=== PATIENT | male | born 1950 | race Caucasian/White ===

== ENCOUNTER 2017-04-23 07:13 | Inpatient (IN) | payer OTHER ==
[~2017-04-23] VITALS: Ht 175.3 cm; Wt 61.2 kg
--- NOTE | ~2017-04-23 | H ---
[facility] [place] [address] HISTORY AND PHYSICAL Name: CAITLYN MURRY Room #: 411-P ADM IN M.R.#: [id number] Admission: 04/23/17 Attend Phys: Bi Ramirez MD Discharge: Date of : 46 Report #: [id number] THIS REPORT FOR: //name// CC: Minda Ramirez DATE OF SERVICE: 04/23/2017 CHIEF COMPLAINT: Fever, nausea, and vomiting. HISTORY OF PRESENT ILLNESS: The patient is a 67-year-old man with multiple medical problems, who was admitted to the rehab after he fractured his pelvis. The patient had ORIF, and he underwent to the rehab. He states that he was supposed to go home tomorrow. The patient was noted to have fever and shortness of breath, followed by nausea and coffee ground emesis. He came to the hospital. Chest x-ray revealed right lower lobe pneumonia. The patient currently feels very weak. Now, he denies shortness of breath. He is not in any pain. He no longer has nausea or vomiting. PAST MEDICAL HISTORY: 1. History of coronary artery disease, status post coronary artery bypass grafting surgery. 2. History of congestive heart failure, details not provided. 3. Paroxysmal atrial fibrillation. 4. COPD, oxygen dependent. 5. Abdominal aortic aneurysm, 5.4 cm by report from the rehab. 6. Diabetes mellitus type 2. 7. Hypertension. CURRENT MEDICATIONS: Extensive list is reviewed and documented in the patient's chart. FAMILY HISTORY: Reviewed and not pertinent to the patient's current condition. SOCIAL HISTORY: The patient quit smoking cigarettes about a year ago. He does not drink alcohol. REVIEW OF SYSTEMS: As above in HPI section, all others negative. PHYSICAL EXAMINATION: GENERAL: The patient is chronically ill-appearing elderly man, who looks older than his actual age. VITAL SIGNS: His blood pressure is 124/77, heart rate is 82 and regular, [facility] [address] [place] [address] HISTORY AND PHYSICAL Name: CAITLYN MURRY Room #: 411-P [facility] IN ..#: [id number] Admission: 04/23/17 Attend Phys: Bi Ramirez MD Discharge: Date of : 46 Report #: [id number] respiration is 18, and temperature is 99.7, from 102.2 earlier today. HEENT: Pupils are equal. Eye movements are normal. Sclerae are anicteric. NECK: The patient has no JVD. He has no carotid bruits. RESPIRATORY: Chest moves symmetrically with breathing. Respiratory sounds are diminished. The patient has no crackles or wheezes. CARDIOVASCULAR: He has regular rhythm and rate. The patient has no murmurs, gallops, or rubs. GASTROINTESTINAL: Abdomen is soft, nondistended and nontender. Bowel sounds are present. The patient has no hepatomegaly or splenomegaly. MUSCULOSKELETAL: The patient has no joint deformities. The patient has generalized muscle wasting. He has no edema, cyanosis, or clubbing. NEUROLOGIC: The patient is alert and oriented x3. His examination is grossly nonfocal. LABS: Basic metabolic profile is essentially normal, except that BUN is 55. Glucose is 117. Creatinine is normal. Magnesium is 1.6. Liver function tests are normal. BNP is elevated at 1800. Troponin is undetectable. On CBC, white count is 13.7, hemoglobin is 11.2, hematocrit is 33.8, and platelets 196. TSH is slightly up at 6.67. Vitamin B12 is normal. Hemoglobin A1c is pending. Urinalysis is normal. On EKG, the patient has normal sinus rhythm. ASSESSMENT AND PLAN: 1. Healthcare-associated pneumonia, involving right lower lobe. The patient is started on broad spectrum antibiotics. Blood cultures are taken. 2. Nausea and vomiting, reported coffee ground emesis. Hemoglobin is stable. The patient has no active bleeding. GI is consulted. The patient is started on PPI. Eliquis is held for now. 3. Congestive heart failure. Details are not specified. Obtain cardiac echo. The patient has no evidence of decompensation. State Tested Nursing Assistant consultation is appreciated. 4. Paroxysmal atrial fibrillation. Currently in sinus rhythm. Holding Eliquis for now, while GI evaluation is pending. 5. Diabetes mellitus type 2. Check hemoglobin A1c. The patient is on sliding scale insulin as an outpatient, which will be continued. 6. Deep venous thrombosis prophylaxis. Sequential compression devices. 7. Debility and weakness. Recent pelvis fracture, status post open reduction and internal fixation. As noted, the patient was in the rehab, which he completed. Continue physical therapy. <ELECTRONICALLY SIGNED> By: Bi Ramirez MD 04/25/17 1604 1209 1304 Bi Ramirez MD /nt
--- NOTE | ~2017-04-23 | HC ---
[facility] [place] [address] CONSULTATION Name: CAITLYN MURRY Room #: 411-P [facility] IN M.R.#: [id number] Admission: 04/23/17 Attend Phys: Bi Ramirez MD Discharge: 04/29/17 Date of : 46 Report #: [id number] THIS REPORT FOR: //name// CC: Minda Ramirez DATE OF SERVICE: 04/29/2017 HISTORY OF PRESENT ILLNESS: The patient is a 67-year-old white male with a history of O2 and steroid dependent COPD, recent right pelvic fracture approximately 5 weeks or so ago. The patient also has chronic right hip premorbid problems, for which he has been utilizing a walker over the last 4 years. He was admitted with a healthcare-associated pneumonia, chronic obstructive pulmonary disease exacerbation, congestive heart failure, diabetes mellitus type 2, paroxysmal atrial fibrillation. He was seen by Orthopedics and noted to have an old Gm King hip arthroplasty with suspected loosening. He is allowed limited weightbearing. He is not felt to be a surgical candidate at this time. It is thought if his medical problems could further stabilize, he could be considered for surgical intervention at a later date. We are seeing him in rehabilitation medicine consultation. PAST MEDICAL HISTORY: Includes coronary artery disease status post CABG, CHF, paroxysmal atrial fibrillation, COPD, O2 dependent, abdominal aortic aneurysm, and diabetes mellitus type 2. MEDICATIONS: Please see the full medication listing. FAMILY HISTORY: Noncontributory. SOCIAL HISTORY: Lives in a house with 7+7 steps, used a front-wheeled walker for the past 4-5 years. He lives there with his daughter and her family. He was on 2 liters nasal cannula. Notes that he has been following with [facility] and has a powered wheelchair, currently on order with his severe right hip pain and decreased functional mobility. REVIEW OF SYSTEMS: Complains of shortness of breath with limited activity. No current chest pain, no abdominal discomfort. He has chronic right hip pain. Notes he has been on narcotics since 1998. No other focal extremity pain complaints at this time. PHYSICAL EXAMINATION: GENERAL: A 67-year-old white male, in no obvious distress. VITAL SIGNS: Last recorded temperature is 97.3, pulse 58, respirations 20, blood pressure 157/78. NEUROLOGIC: He is alert. He is on nasal prong O2, currently 3 liters. Follows basic commands without difficulty. [facility] [address] [place] [address] CONSULTATION Name: CAITLYN MURRY Room #: 411-P [facility] IN .R.#: [id number] Admission: 04/23/17 Attend Phys: Bi Ramirez MD Discharge: 04/29/17 Date of : 46 Report #: [id number] MUSCULOSKELETAL: Functional range of motion of the left upper extremity without obvious focal weakness. Would grade his strength at 3+ to 4-/5. Right upper extremity was not ranged as there is note of newly diagnosed right upper extremity DVT by report. In the lower extremities, there is no focal calf swelling, functional range of motion. I did not do any aggressive range of motion at all of the lower extremities. Strength is grade 3+ to 4-/5. No focal calf swelling. No distal lower extremity edema. Tone appeared to be intact. He has been mod assist with supine to sit. Gait was 3 feet mod assist with a front-wheeled walker. ASSESSMENT: A 67-year-old male with the following problem list: 1. Steroid myopathy. 2. Recent right pelvic fracture now approximately 5 weeks ago. 3. 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 May warrant surgical intervention at a later date if he can medically stabilize and further clear. 4. History of healthcare-associated pneumonia. 5. Chronic obstructive pulmonary disease exacerbation. 6. Chronic O2 and steroid dependent chronic obstructive pulmonary disease. 7. History of abdominal aortic aneurysm. 8. Diabetes mellitus type 2. 9. Coronary artery disease with prior coronary artery bypass graft. PLAN: Therapies are working with him on functional mobility and ADL deficits, working on gradually advancing his mobility and ADLs and independence. He indicates the plan to return back to [facility] for further inpatient therapies to maximize his functional independence. Case management is involved in assisting with this plan. Thank you for asking us to assist in this patient's care. <ELECTRONICALLY SIGNED> By: Perfecto Fowler MD 04/30/17 1510 1238 0046 Perfecto Fowler MD /[facility]
--- NOTE | ~2017-04-23 | 2DMMODE ---
[facility] [place] [address] 2 D/M-MODE ECHOCARDIOGRAM Name: CAITLYN MURRY Room #: 411-P ADM IN M.R.#: [id number] Admission: 04/23/17 Attend Phys: Bi Ramirez Discharge: Date of : 46 Date of Service: 04/23/17 1456 Report #: [id number] THIS REPORT FOR: //name// APPROVED REPORT Study performed: 04/23/2017 13:35:00 EXAM: Comprehensive 2D, Doppler, and color-flow Echocardiogram Status: routine BSA: 1.75 HR: 63 bpm BP: 112/53 mmHg Rhythm: NSR Other Information Study Quality: Good Indications Congestive Heart Failure Hx: CABG, COPD 2D Dimensions RVDd: 36.13 mm LVEF(%): 53.99 (>50%) IVSd: 10.28 (7-11mm) LVOT Diam: 20.18 (18-24mm) LVDd: 55.05 mm PWd: 9.27 (7-11mm) Ascending Ao: 36.37 (22-36mm) LVDs: 39.51 (25-40mm) Aortic Root: 40.82 mm IVC: 19.00 mm TAPSE: 1.50 (<1.7) Jimenez's LVEF: 53.99 % Volumes Left Atrial Volume (Systole) Single Plane 4CH: 55.09 mL Single Plane 2CH: 61.73 mL LA ESV Index: 37.00 mL/m2 Aortic Valve AoV Peak Jon.: 1.44 m/s AO Peak Gr.: 8.25 mmHg LVOT Max P.04 mmHg LVOT Max V: 1.23 m/s CHI Vmax: 2.73 cm2 Mitral Valve E/A Ratio: 0.[address] [facility] [place] [address] 2 D/M-MODE ECHOCARDIOGRAM Name: CAITLYN MURRY Room #: 411-P ADM IN M.R.#: [id number] Admission: 04/23/17 Attend Phys: Bi Ramirez Discharge: Date of : 46 Date of Service: 04/23/17 1456 Report #: [id number] MV Decel. Time: 218.70 ms MV E Max Jon.: 0.61 m/s MV A Jon.: 0.78 m/s MV PHT: 63.42 ms IVRT: 147.64 ms Pulmonary Valve PV Peak Jon.: 0.93 m/s PV Peak Gr.: 3.46 mmHg Pulmonary Vein P Vein S: 0.58 m/s P Vein A: 0.28 m/s P Vein D: 0.35 m/s P Vein A Dur.: 166.1 msec P Vein S/D Ratio: 1.66 Tricuspid Valve TR Peak Jon.: 3.51 m/s RAP Estimate: 5.00 mmHg TR Peak Gr.: 49.18 mmHg PA Pressure: 54.00 mmHg Left Ventricle The left ventricle is normal size. There is mild hypokinesis in the apical septal wall. There is normal left ventricular wall thickness. The left ventricular systolic function is normal. LVEF is 50-55%. Grade I - abnormal relaxation pattern. Right Ventricle The right ventricle is normal size. The right ventricular systolic function is normal. Atria Left atrium is mildly dilated. Right atrium is mildly dilated. Aortic Valve Aortic valve is calcified. Mild aortic regurgitation. There is no aortic valvular stenosis. Mitral Valve Mild mitral annular calcification. Trace mitral regurgitation. No evidence of mitral valve stenosis. Tricuspid Valve The tricuspid valve is normal in structure. Trace to mild tricuspid regurgitation. Pulmonic Valve [address] [address] 2 D/M-MODE ECHOCARDIOGRAM Name: CAITLYN MURRY Room #: 411-P [facility] IN ..#: [id number] Admission: 04/23/17 Attend Phys: Bi Ramirez Discharge: Date of : 46 Date of Service: 04/23/17 1456 Report #: [id number] Pulmonic valve is not well visualized. There is no pulmonic valvular regurgitation. Great Vessels Aortic root is dilated. The ascending aorta is normal in size. IVC is normal in size and collapses >50% with inspiration. Pericardium There is no pericardial effusion. <Conclusion> The left ventricle is normal size. LVEF is 50-55%. There is mild hypokinesis in the apical septal wall. Left atrium is mildly dilated. Right atrium is mildly dilated. Aortic valve is calcified. Mild aortic regurgitation. Mild mitral annular calcification. Trace mitral regurgitation. The tricuspid valve is normal in structure. Trace to mild tricuspid regurgitation. Pulmonic valve is not well visualized. Aortic root is dilated. The ascending aorta is normal in size. There is no pericardial effusion. <ELECTRONICALLY SIGNED> By: Wagner Figueredo MD 04/23/17 1456 1456 1456 Wagner Figueredo MD /INF
--- NOTE | ~2017-04-23 | HC ---
[facility] [place] [address] CONSULTATION Name: CAITLYN MURRY Room #: 411-P [facility] IN M.R.#: [id number] Admission: 04/23/17 Attend Phys: Bi Ramirez MD Discharge: 04/29/17 Date of : 46 Report #: [id number] THIS REPORT FOR: //name// CC: Minda Ramirez DATE OF SERVICE: 04/25/2017 REASON FOR CONSULTATION: Pelvis fracture. HISTORY OF PRESENT ILLNESS: The patient is a 67-year-old male with a somewhat complicated history regarding his right hip. He reports sustaining a fracture in [place] about 4 years ago, being treated with what appears to be a total hip arthroplasty per the patient's report and drawing. He reports of what sounds like a fracture dislocation that did not require surgical treatment; however, he reports he has had difficulty with the hip and has been walking with a walker and had difficulty weightbearing ever since. He moved to [place] to be with his daughter. He has been evaluated by the [facility] by Orthopedics and reports that they do not want to do surgery on him, he thinks for his medical reasons. He gives a history of using a walker and actually getting around fairly well with a walker for the last 4 years. He reports putting some weight on it until this most recent event. He gives a history of a fall with a new diagnosis of a pelvis fracture. This has been treated nonoperatively and some new bone fragment in his hip. He has not been allowed to put weight on it. Since this event, he apparently was seen in the Emergency Department, diagnosed with a fracture and sent to rehab for that and other reasons. He reports a significant history of pulmonary issues. He does report some pain at rest in the right hip and thigh. He also gives a history of chronic left shoulder pain, stiffness and arthrosis. He reports being evaluated for his left shoulder and treated nonoperatively. REVIEW OF SYSTEMS: MUSCULOSKELETAL: Unable to see HPI. NEUROLOGIC: Denies numbness or tingling in his extremities. PAST MEDICAL HISTORY: Significant for coronary artery disease, post coronary artery bypass surgery, congestive heart failure, paroxysmal atrial fibrillation, COPD, abdominal aortic aneurysm 5.4 cm report from the medical record, diabetes type 2, hypertension. SOCIAL HISTORY: He reports quitting smoking about a year ago, does not drink alcohol. His daughter helps with his care. He is oxygen dependent and ambulates with a walker. MEDICATIONS: The patient's MAR was reviewed, which shows albuterol, [address] [address] CONSULTATION Name: CAITLYN MURRY Room #: [facility] IN M.R.#: [id number] Admission: 04/23/17 Attend Phys: Bi Ramirez MD Discharge: 04/29/17 Date of : 46 Report #: [id number] pantoprazole, metoprolol, lactobacillus, furosemide, amiodarone, oxycodone, vancomycin, Solu-Medrol, ferrous sulfate, bupropion, atorvastatin, insulin, piperacillin, tazobactam, loratadine. PAST SURGICAL HISTORY: Coronary artery bypass graft and right hip surgery. The patient reports surgical procedure to place stents in his left lower extremity, but not his right lower extremity. LABORATORY STUDIES: Done on 04/25/2017 show white blood cell count 8.5, hemoglobin 8.1, hematocrit 24.3, platelet count 134. Chemistry on the same date is essentially normal with an elevated glucose at 250. Nares are positive for MRSA. PHYSICAL EXAMINATION: GENERAL: The patient is awake and alert. He interacts appropriately. He is a well-developed, well-nourished, conversant male. VITAL SIGNS: His most recent vital signs show heart rate is 79, blood pressure 145/90 and he is on oxygen by nasal cannula. EXTREMITIES: Examination of his bilateral upper extremities. He has some dark discoloration of the dorsum of his hands, most likely due to venous insufficiency. He has brisk capillary refill. Sensation is intact to light touch. He is able to make full fist, full extension. He has a full functional wrist, elbow and forearm motion. He has minimal motion of the left shoulder with diffuse tenderness and deformity. Right shoulder forward elevation and abduction to approximately 50 degrees with diffuse mild tenderness. Right lower extremity exam: Sensation is grossly intact. He wiggles his toes and he has some signs of stasis dermatitis in the skin, otherwise is clean, dry and intact. He has no significant knee pain. He is able to grossly move his knee. There is some mild pain with hip range of motion and mild thigh tenderness. Left lower extremity exam: Sensation is intact to light touch throughout. He has brisk capillary refill. He has also some chronic venous stasis changes. He has no pain with range of motion of the left hip, knee, ankle or foot. Laboratory studies will be ordered. IMPRESSION AND PLAN: History of a right pelvis/femur fracture. I am unable to determine exactly what the diagnosis is as well as the procedure that was performed. I will order pelvis and hip x-rays and then we will discuss with one of my [facility] formally [facility] surgery partners. Thank you very much for allowing me to participate in the care of this patient. <ELECTRONICALLY SIGNED> By: Dorothy Garnica MD 05/02/17 1525 1618 0518 Dorothy Garnica MD /nt
--- NOTE | ~2017-04-23 | EKG ---
[place] [address] [facility] [place] [address] ELECTROCARDIOGRAM REPORT Name: CAITLYN MURRY Room #: 411-P ADM IN M.R.#: [id number] Admission: 04/23/17 Attend Phys: iB Ramirez MD Discharge: Date of : 46 Report #: [id number] THIS REPORT FOR: //name// [facility] ED Test Date: 2017-04-23 Test Time: 08:31:35 Pat Name: CAITLYN MURRY Department: Room: 411 Gender: M Yoker: felipe : 1950 Requested By: Baron Jones Order Number: [id number] MD: Vick Harrington Measurements Intervals [place] Rate: 85 P: 35 [place]: 174 QRS: -52 QRSD: 120 T: 96 QT: 417 QTc: 496 Interpretive Statements Sinus rhythm LVH with QRS widening and secondary repolarization abnormality Anterior Q waves, possibly due to LVH No previous ECG available for comparison Electronically Signed On 04-24-2017 8:56:08 REFRACTORY TECHNICIAN by Vick Harrington [email or web address] <ELECTRONICALLY SIGNED> By: Vick Harrington MD, [facility] 04/24/17 0856 0 0 Vick Harrington MD, [facility] /EPI
[2017-04-23 07:15] VITALS: BP 126/76
[2017-04-23] MEDS ORDERED: PREDNISONE 20 M20 MG PO (07:43)
[2017-04-23 07:45] LABS: HEMATOCRIT 33.8 % (42.0-52.0); HEMOGLOBIN 11.2 gm/dL (14.0-18.0); MCH 29.5 pg (26.0-34.0); MCHC 33.2 g/dL (28.0-37.0); MCV 88.7 fL (80.0-100.0); PLATELET COUNT 196 thou/uL (150-400); RBC 3.82 mil/uL (4.50-6.00); RDW 19.4 % (10.5-14.5); WBC 13.7 thou/uL (4.0-11.0)
[2017-04-23] MEDS ORDERED: MIRALAX17 GM PO (07:49)
[2017-04-23] MEDS ORDERED: PROTONIX40 M1 PO (07:50)
[2017-04-23] MEDS ORDERED: OXYCONTIN20 M1 PO (07:50)
[2017-04-23] MEDS ORDERED: LOPRESSOR50 PO (07:51)
[2017-04-23] MEDS ORDERED: MAG-AL PLUS SUS30 ML PO (07:52)
[2017-04-23] MEDS ORDERED: CLARITIN10 MG PO (07:52)
[2017-04-23 07:54] LABS: ANION GAP 11 mmol/L (7-16); BUN 55 mg/dL (7-18); CHLORIDE 104 mmol/L (98-107); CO2 27 mmol/L (21-32); CREATININE 1.2 mg/dL (0.7-1.3); GLUCOSE 117 mg/dL (74-106); POTASSIUM 3.9 mmol/L (3.5-5.1); SODIUM 142 mmol/L (136-145)
[2017-04-23 07:54] LABS: URINE BILIRUBIN NEGATIVE (Negative); URINE BLOOD NEGATIVE (Negative); URINE CLARITY CLEAR; URINE COLOR YELLOW; URINE GLUCOSE-RANDOM* NEGATIVE (Negative); URINE KETONES NEGATIVE (Negative); URINE LEUKOCYTES-REFLEX NEGATIVE (Negative); URINE NITRITE-REFLEX NEGATIVE (Negative); URINE PROTEIN (DIPSTICK) NEGATIVE (Negative); URINE SPECIFIC GRAVITY 1.015 (1.005-1.035); URINE UROBILINOGEN 0.2 E.U./dl (0.2-1.0)
[2017-04-23] MEDS ORDERED: PROBIOTIC1 EAC1 PO (07:54)
[2017-04-23] MEDS ORDERED: MUCINEX600 MG PO (07:54)
[2017-04-23] MEDS ORDERED: GLUTOSE GEL 1515 G1 PO (07:54)
[2017-04-23] MEDS ORDERED: GLUCAGEN1 M2 SUBQ (07:55)
[2017-04-23] MEDS ORDERED: LASIX 20 MG TAB20 MG PO (07:55)
[2017-04-23 08:02] LABS: ALBUMIN 3.4 g/dL (3.4-5.0); MAGNESIUM 1.6 mg/dL (1.8-2.4); SGOT 12 U/L (15-37); SGPT 20 U/L (30-65); TOTAL BILIRUBIN 0.5 mg/dL (<0.1-1.0); TOTAL PROTEIN 6.6 g/dL (6.4-8.2); TROPONIN-I < 0.04 ng/mL (<0.06)
[2017-04-23] MEDS ORDERED: IRON325 PO (08:09)
[2017-04-23] MEDS ORDERED: COLACE100 MG PO (08:10)
[2017-04-23] MEDS ORDERED: LIPITOR10 MG PO (08:11)
[2017-04-23] MEDS ORDERED: BISACODYL SUPP10 MG RECTAL (08:11)
[2017-04-23] MEDS ORDERED: TESSALON PERLE100 MG PO (08:11)
[2017-04-23] MEDS ORDERED: PACERONE 200 M200 M1 PO (08:12)
[2017-04-23] MEDS ORDERED: ELIQUIS5 MG PO (08:12)
[2017-04-23] MEDS ORDERED: ASPIR 8181 MG PO (08:12)
[2017-04-23] MEDS ORDERED: ALBUTEROL2.5 MG/31 INH (08:13)
[2017-04-23] MEDS ORDERED: DUONEB 2.5-0.5 M3 ML INH (08:13)
[2017-04-23] MEDS ORDERED: APAP650 PO (08:14)
[2017-04-23] MEDS ORDERED: SSD CREAM 1% 5050 GM TOP (08:14)
[2017-04-23] MEDS ORDERED: WELLBUTRIN SR100 MG PO (08:14)
[2017-04-23] MEDS ORDERED: NOVOLOG100 UNIT/1 SUBQ (08:15)
[2017-04-23] MEDS ORDERED: SENNA8.6 MG PO (08:15)
[2017-04-23] MEDS ORDERED: MINTOX PLUS TA1 EACH PO (08:16)
[2017-04-23] MEDS ORDERED: ENEMEEZ PLUS MIN5 ML RECTAL (08:17)
[2017-04-23] MEDS ORDERED: DEXTROSE 500.5 GM/ML IV PUSH (08:19)
[2017-04-23] MEDS ORDERED: DEXTROSE 5% IV (08:20)
[2017-04-23 08:48] LABS: ABSOLUTE NEUTROPHILS 12.1 thou/uL (1.4-8.2); METAMYELOCYTES 1 %
[2017-04-23 08:49] LABS: ANISOCYTOSIS 2+; POLYCHROMASIA OCCASIONAL
[2017-04-23 09:25] VITALS: BP 126/76
[2017-04-23 11:27] LABS: TSH 6.656 uIU/mL (0.358-3.740)
[2017-04-23 13:05] VITALS: BP 112/53
[2017-04-23 18:10] LABS: GLYCOHEMOGLOBIN (HGB A1C) 5.2 % (4.8-5.6)
[2017-04-23 20:17] VITALS: BP 94/543
[2017-04-24] VITALS (7 sets, daily range): BP systolic 95–151; BP diastolic 55–83
[2017-04-24] MEDS ORDERED: OXYCODONE HCL 55 MG PO (05:58)
[2017-04-24 06:07] LABS: ABSOLUTE NEUTROPHILS 7.1 thou/uL (1.4-8.2); BASOPHILS 0.1 % (0.0-2.0); HEMATOCRIT 20.8 % (42.0-52.0); LYMPHOCYTES 3.7 % (24.0-44.0); MCHC 33.5 g/dL (28.0-37.0); MCV 89.6 fL (80.0-100.0); MONOCYTES 4.2 % (1.0-8.0); PLATELET COUNT 124 thou/uL (150-400); RBC 2.33 mil/uL (4.50-6.00); RDW 19.1 % (10.5-14.5); WBC 7.7 thou/uL (4.0-11.0)
[2017-04-24 06:29] LABS: ALBUMIN 2.2 g/dL (3.4-5.0); CALCIUM 8.2 mg/dL (8.5-10.1); CREATININE 0.9 mg/dL (0.7-1.3); POTASSIUM 4.3 mmol/L (3.5-5.1); TOTAL BILIRUBIN 0.5 mg/dL (<0.1-1.0); TOTAL PROTEIN 4.7 g/dL (6.4-8.2)
[2017-04-24 07:49] LABS: HEMATOCRIT 20.9 % (42.0-52.0); HEMOGLOBIN 6.9 gm/dL (14.0-18.0)
[2017-04-24 23:14] LABS: HEMATOCRIT 27.5 % (42.0-52.0)
[2017-04-24 23:20] LABS: HEMOGLOBIN 9.1 gm/dL (14.0-18.0)
[2017-04-24 23:23] LABS: CALCIUM 8.4 mg/dL (8.5-10.1); POTASSIUM 3.8 mmol/L (3.5-5.1)
[2017-04-25 04:12] VITALS: BP 139/74
[2017-04-25 06:15] LABS: HEMATOCRIT 24.3 % (42.0-52.0); HEMOGLOBIN 8.1 gm/dL (14.0-18.0); MCH 30.1 pg (26.0-34.0); MCHC 33.3 g/dL (28.0-37.0); MCV 90.2 fL (80.0-100.0); PLATELET COUNT 134 thou/uL (150-400); RBC 2.69 mil/uL (4.50-6.00); RDW 18.9 % (10.5-14.5); WBC 8.5 thou/uL (4.0-11.0)
[2017-04-25 06:30] LABS: CALCIUM 8.4 mg/dL (8.5-10.1); CREATININE 0.9 mg/dL (0.7-1.3)
[2017-04-25 07:47] VITALS: BP 145/79
[2017-04-25 08:14] LABS: ANISOCYTOSIS 2+; POLYCHROMASIA SLIGHT
[2017-04-25 16:37] VITALS: BP 138/67
[2017-04-25 20:00] VITALS: BP 142/64
[2017-04-26 04:00] VITALS: BP 156/76
[2017-04-26 04:55] LABS: ABSOLUTE NEUTROPHILS 7.5 thou/uL (1.4-8.2); HEMATOCRIT 24.2 % (42.0-52.0); HEMOGLOBIN 8.1 gm/dL (14.0-18.0); LYMPHOCYTES 1.8 % (24.0-44.0); MCH 30.2 pg (26.0-34.0); MCHC 33.6 g/dL (28.0-37.0); MCV 89.7 fL (80.0-100.0); MONOCYTES 2.8 % (1.0-8.0); PLATELET COUNT 128 thou/uL (150-400); POLYS 95.4 % (36.0-66.0); RDW 18.4 % (10.5-14.5); WBC 7.8 thou/uL (4.0-11.0)
[2017-04-26 04:59] LABS: CREATININE 1.1 mg/dL (0.7-1.3); POTASSIUM 3.8 mmol/L (3.5-5.1)
[2017-04-26 07:31] VITALS: BP 155/74
[2017-04-26 15:45] VITALS: BP 135/67
[2017-04-26 20:00] VITALS: BP 101/73
[2017-04-27 04:00] VITALS: BP 167/77
[2017-04-27 07:00] LABS: HEMATOCRIT 26.3 % (42.0-52.0); HEMOGLOBIN 8.8 gm/dL (14.0-18.0); MCHC 33.4 g/dL (28.0-37.0); RBC 2.92 mil/uL (4.50-6.00); RDW 18.1 % (10.5-14.5); WBC 6.6 thou/uL (4.0-11.0)
[2017-04-27 09:50] VITALS: BP 154/72
[2017-04-27 16:59] VITALS: BP 150/79
[2017-04-27 20:16] VITALS: BP 131/63
[2017-04-28 04:00] VITALS: BP 131/79
[2017-04-28 04:47] LABS: HEMATOCRIT 26.9 % (42.0-52.0); HEMOGLOBIN 8.9 gm/dL (14.0-18.0); MCH 29.5 pg (26.0-34.0); MCHC 33.1 g/dL (28.0-37.0); MCV 89.2 fL (80.0-100.0); PLATELET COUNT 134 thou/uL (150-400); RBC 3.02 mil/uL (4.50-6.00); RDW 18.3 % (10.5-14.5); WBC 8.4 thou/uL (4.0-11.0)
[2017-04-28 05:00] LABS: CALCIUM 7.9 mg/dL (8.5-10.1); POTASSIUM 3.8 mmol/L (3.5-5.1)
[2017-04-28 05:23] LABS: ABSOLUTE NEUTROPHILS 7.9 thou/uL (1.4-8.2); ANISOCYTOSIS 2+; METAMYELOCYTES 1 %; MYELOCYTES 1 %
[2017-04-28 07:10] VITALS: BP 163/82
[2017-04-28 15:50] VITALS: BP 152/77
[2017-04-28 20:38] VITALS: BP 156/87
[2017-04-29 05:13] VITALS: BP 164/80
[2017-04-29 05:17] LABS: CALCIUM 8.1 mg/dL (8.5-10.1); CREATININE 1.1 mg/dL (0.7-1.3); HEMATOCRIT 26.5 % (42.0-52.0); HEMOGLOBIN 8.9 gm/dL (14.0-18.0); MCHC 33.6 g/dL (28.0-37.0); MCV 89.3 fL (80.0-100.0); PLATELET COUNT 135 thou/uL (150-400); POTASSIUM 3.7 mmol/L (3.5-5.1); RBC 2.96 mil/uL (4.50-6.00); RDW 18.2 % (10.5-14.5); WBC 9.6 thou/uL (4.0-11.0)
[2017-04-29 08:01] VITALS: BP 157/78
[2017-04-29 08:22] LABS: ABSOLUTE NEUTROPHILS 9.1 thou/uL (1.4-8.2)
[2017-04-29 08:25] LABS: ANISOCYTOSIS 1+; OVALOCYTES FEW; POIKILOCYTOSIS SLIGHT
[2017-04-29 08:26] LABS: TEARDROPS OCCASIONAL
[2017-04-29] MEDS ORDERED: AUGMENTIN 875-1 EACH PO (13:17)
[2017-04-29 15:45] VITALS: BP 150/80
== END 2017-04-29 19:40 | DRG 177 ==
LOC: ER 07:13 → 4N 08:38 → EROBS 08:38 → 4N 12:21
PROVIDERS: Emergency Medicine; Internal Medicine; Internal Medicine Endocrinology, Diabetes & Metabolism; Internal Medicine Gastroenterology; Nurse Practitioner Acute Care
PROC: 30233N1 Transfusion of Nonautologous Red Blood Cells into Peripheral Vein, Percutaneous Approach (ICD-10-PCS; principal; 2017-04-24)
DX: J69.0 Pneumonitis due to inhalation of food and vomit (principal); J96.21 Acute and chronic respiratory failure with hypoxia; K92.2 Gastrointestinal hemorrhage, unspecified; J44.1 Chronic obstructive pulmonary disease with (acute) exacerbation; G72.0 Drug-induced myopathy; J44.0 Chronic obstructive pulmonary disease with (acute) lower respiratory infection; I13.0 Hypertensive heart and chronic kidney disease with heart failure and stage 1 through stage 4 chronic kidney disease, or unspecified chronic kidney disease; E44.0 Moderate protein-calorie malnutrition; D62 Acute posthemorrhagic anemia; Z68.1 Body mass index [BMI] 19.9 or less, adult; J15.6 Pneumonia due to other Gram-negative bacteria; I25.10 Atherosclerotic heart disease of native coronary artery without angina pectoris; I50.9 Heart failure, unspecified; I48.0 Paroxysmal atrial fibrillation; T38.0X5A Adverse effect of glucocorticoids and synthetic analogues, initial encounter; I71.4 Abdominal aortic aneurysm, without rupture; K21.9 Gastro-esophageal reflux disease without esophagitis; E11.51 Type 2 diabetes mellitus with diabetic peripheral angiopathy without gangrene; N18.9 Chronic kidney disease, unspecified; E11.22 Type 2 diabetes mellitus with diabetic chronic kidney disease; E78.00 Pure hypercholesterolemia, unspecified; E78.5 Hyperlipidemia, unspecified; G89.29 Other chronic pain; Y95 Nosocomial condition; Z95.1 Presence of aortocoronary bypass graft; Z79.899 Other long term (current) drug therapy; Z87.891 Personal history of nicotine dependence; Z87.81 Personal history of (healed) traumatic fracture; Y92.89 Other specified places as the place of occurrence of the external cause; Z88.8 Allergy status to other drugs, medicaments and biological substances; Z88.6 Allergy status to analgesic agent; Z91.030 Bee allergy status; Z91.010 Allergy to peanuts; Z91.013 Allergy to seafood; Z87.11 Personal history of peptic ulcer disease; Z90.49 Acquired absence of other specified parts of digestive tract; Z79.01 Long term (current) use of anticoagulants
CPT/HCPCS: 10790

== ENCOUNTER 2017-05-09 05:19 | Inpatient (IN) | payer OTHER ==
[~2017-05-09] VITALS: Ht 175.3 cm; Wt 57.6 kg
[2017-05-09] VITALS (26 sets, daily range): BP systolic 53–170; BP diastolic 20–88
--- NOTE | ~2017-05-09 | P ---
[facility] [place] [address] PROCEDURE REPORT Name: CAITLYN MURRY Room #: 243-P [facility] IN M.R.#: [id number] Admission: 05/09/17 Attend Phys: Milan Terry MD Discharge: 05/09/17 Date of : 46 Report #: [id number] THIS REPORT FOR: //name// CC: FAM unknown Milan Terry DATE OF SERVICE: 05/09/2017 PROCEDURE: Emergent intubation. INDICATION: Respiratory distress and apparent sepsis and pneumonia. PROCEDURE NOTATION: Called urgently. The patient at bedside for stat consultation, patient transferred to the ICU, he is in respiratory distress. The patient had indication for emergent intubation. The patient was placed supine posturing given 20 mg of etomidate which provide adequate sedation. The patient was edentulous with a Balbina 4 laryngoscope with direct laryngoscopy a grade 1 view of the vocal cords were visualized. A 7.5 endotracheal tube was advanced to 23 cm at the gumline. Positive easy cap color change and bilateral breath sounds are noted post-procedure. Endotracheal tube was secured in position, was noted to be in the distal trachea. I x-ray post-procedure. Thick yellow secretions to casas secretions were aspirated post-procedure. No hypoxemia during procedure. The patient connected to mechanical ventilatory at the end of procedure. <ELECTRONICALLY SIGNED> By: Nathan Nina MD 05/15/17 1233 1335 1854 Nathan Nina MD /marilou
--- NOTE | ~2017-05-09 | P ---
[facility] [place] [address] PROCEDURE REPORT Name: CAITLYN MURRY Room #: 243-P [facility] IN M.R.#: [id number] Admission: 05/09/17 Attend Phys: Milan Terry MD Discharge: 05/09/17 Date of : 46 Report #: [id number] THIS REPORT FOR: //name// CC: FAM unknown Milan Terry DATE OF SERVICE: 05/09/2017 This is a delayed dictation. PROCEDURE: Right radial arterial catheter insertion. INDICATION: Severe sepsis, need for continuous blood pressure monitoring and frequent arterial blood gases. PROCEDURE NOTATION: Right radial arterial site was chosen, in the location patient had poor pulses, and hypotension, on multiple pressors. It was positioned appropriately, cleansed with 2% chlorhexidine gluconate. Sterile field was created using sterile technique and 20 gauge Arrow introducer kit, the right radial artery was cannulated on the third attempt, good pulsatile waveform noted on the monitor. The catheter flushed and aspirated easily, sutured in place with 3-0 silk and then dressed with clear OpSite. <ELECTRONICALLY SIGNED> By: Nathan Nina MD 05/23/17 1122 1014 2313 Nathan Nina MD /nt
--- NOTE | ~2017-05-09 | HC ---
[facility] [place] [address] CONSULTATION Name: CAITLYN MURRY Room #: [facility] IN M.R.#: [id number] Admission: 05/09/17 Attend Phys: Milan Terry MD Discharge: 05/09/17 Date of : 46 Report #: [id number] THIS REPORT FOR: //name// CC: FAM unknown Milan Terry MD DATE OF SERVICE: 05/09/2017 PULMONARY CRITICAL CARE CONSULTATION REFERRING PROVIDER: Milan Terry MD REASON FOR CONSULTATION: Respiratory failure, pneumonia and sepsis. HISTORY OF PRESENT ILLNESS: I was asked emergently to see the patient. Discussed case with Dr. Baron Naqvi and Dr. Terry as well as nursing and respiratory therapy assist with transfer the patient to the ICU and additional management. The patient was already intubated by myself once arrived in the ICU. The patient apparently was here about 2 weeks ago, I had seen him at that time for pneumonia, felt to be associated with aspiration and had had some ground coffee appearing emesis. The patient was placed on proton pump inhibitor. No endoscopies were performed. The patient had been returned back to rehab where he had been rehabbing from pelvic fractures, represented today to the Emergency Department early this morning in respiratory distress. He had also had a fall with a large hematoma over his left lower leg. Upon my arrival to the bedside in the CCU, patient is in obvious respiratory distress. They vocalized to me he wanted to be intubated and have aggressive resuscitative measures. Findings most consistent with pneumonia, he is currently in the ICU, awaiting additional workup. ALLERGIES: None known. PAST MEDICAL HISTORY: 1. Severe debilitation. Currently resides I believe in senior care. 2. COPD. 3. Atrial fibrillation. 4. History of peptic ulcer disease. 5. Severe peripheral vascular disease. 6. Hypertension. 7. Gastroesophageal reflux disease. 8. History of congestive heart failure. 9. Degenerative joint disease. 10. Recent pelvic fractures. 11. Chronic renal insufficiency. 12. Steroid dependency for COPD. [facility] [address] [place] [address] CONSULTATION Name: CAITLYN MURRY Room #: 243-P [facility] IN M.R.#: [id number] Admission: 05/09/17 Attend Phys: Milan Terry MD Discharge: 05/09/17 Date of : 46 Report #: [id number] 13. Hyperlipidemia. 14. History of coronary artery disease with coronary artery bypass grafting. 15. History of abdominal aortic aneurysm. SOCIAL HISTORY: The patient quit smoking about 1 year ago. FAMILY HISTORY: Unobtainable. REVIEW OF SYSTEMS: Unobtainable due to his current neurologic status. PHYSICAL EXAMINATION: VITAL SIGNS: Temperature 34.6, pulse 100, respiratory rate 30s, blood pressure 135/88. GENERAL: This is a very debilitated elderly male in obvious respiratory distress. ENT: Reveals pupils 3 mm reactive to 2, very clear oropharynx, edentulous, Mallampati 1. NECK: Supple. Extensive ecchymosis around sites of EJ attempts in the Emergency Department. CHEST: Reveals a left upper extremity, shoulder intraosseous access with extensive edema and some ecchymosis with no chest wall deformities, somewhat barrel-shaped chest. LUNGS: Coarse throughout. Respirations were labored and tachypneic. CARDIOVASCULAR: Heart was regular. No murmurs could be appreciated. ABDOMEN: Diffusely tender, particularly to percussion, somewhat tympanitic. EXTREMITIES: Diminished pulses, livedo reticularis noted over the lower extremities. A large hematoma over the left lower extremity with some chronic stasis changes also appreciated. NEUROLOGIC: The patient was arousable and could speak make sense, followed commands, moving all extremities. Difficult to assess further. LABORATORY DATA: White blood cell count 30,000; hemoglobin 8.8, hematocrit 27, platelet count 373. Sodium 139, potassium 5.3, chloride 100, bicarbonate 29, BUN 46, creatinine 1.2, glucose 259. Arterial blood gas initially in the Emergency Department on nonrebreather mask revealed pH 7.39, pCO2 of 49, pO2 of 199, bicarbonate 29. Lactate was 3.2. INR is 1.1. Urinalysis without any pyuria. Chest x-ray post-intubation revealed PICC line in good position. Endotracheal tube in good position. A right lower lobe infiltrate suggested. IMPRESSION: 1. Pneumonia. 2. Acute hypoxemic respiratory failure, likely due to the above and/or sepsis. 3. Severe sepsis as evidenced by leukocytosis, tachycardia, tachypnea, hypoxemia, and multiorgan failures. 4. Abdominal discomfort of unclear etiology, given history of peptic ulcer disease and recent finding suggestive of gastrointestinal bleed would be [address] [address] CONSULTATION Name: CAITLYN MURRY Room #: 243-P [facility] IN M.R.#: [id number] Admission: 05/09/17 Attend Phys: Milan Terry MD Discharge: 05/09/17 Date of : 46 Report #: [id number] concerned about an intra-abdominal process in addition to his pneumonia. 5. General debilitation. 6. Recent pelvic fracture. 7. Anemia. 8. History of coronary artery disease. SUGGESTIONS: 1. Plan as outlined already performed. 2. Plan for CT chest, abdomen and pelvis to further evaluate. 3. Antibiotics per Infectious Disease service. 4. Await cultures. 5. Continue bronchodilators, ventilatory support. Currently on low tidal volume high respiratory rate mechanical ventilatory support, followup arterial blood gas, Surgical consultation regarding abdominal discomfort and lower extremity hematoma. 6. We will continue to follow. Total critical care time not including procedures was 50 minutes to this point throughout the morning. <ELECTRONICALLY SIGNED> By: Nathan Nina MD 05/15/17 1234 1343 1938 Nathan Nina MD /nt
--- NOTE | ~2017-05-09 | EKG ---
[place] [address] [facility] [place] [address] ELECTROCARDIOGRAM REPORT Name: CAITLYN MURRY Room #: 170-6 ADM IN M.R.#: [id number] Admission: 05/09/17 Attend Phys: Kalyan Jaimes MD Discharge: Date of : 46 Report #: [id number] THIS REPORT FOR: //name// [facility] ED Test Date: 2017-05-09 Test Time: 05:58:26 Pat Name: CAITLYN MURRY Department: Room: 170 Gender: M Dialysis Patient Care Technician: Anastacio VALENCIA : 1950 Requested By: Fahad Vyas Order Number: [id number] MD: Vick Harrington Measurements Intervals [place] Rate: 82 P: 50 MD: 161 QRS: -44 QRSD: 111 T: 102 QT: 428 QTc: 500 Interpretive Statements Sinus rhythm Left atrial enlargement Left anterior fascicular block LVH with secondary repolarization abnormality Anterior infarct, old Compared to ECG 04/23/2017 08:31:35 No significant change was found Electronically Signed On 05-09-2017 7:47:02 [employer] by Vick Harrington [email or web address] <ELECTRONICALLY SIGNED> By: Vick Harrington MD, [facility] 05/09/17 0747 0558 0558 Vick Harrington MD, [facility] /EPI
--- NOTE | ~2017-05-09 | HC ---
[facility] [place] [address] CONSULTATION Name: CAITLYN MURRY Room #: 243-P [facility] IN M.R.#: [id number] Admission: 05/09/17 Attend Phys: Milan Terry MD Discharge: 05/09/17 Date of : 46 Report #: [id number] THIS REPORT FOR: //name// CC: FAM unknown Milan Terry DATE OF SERVICE: 05/09/2017 INFECTIOUS DISEASES CONSULTATION REASON FOR CONSULTATION: I was asked to evaluate concerning severe sepsis and respiratory failure with aspiration suspected. HISTORY OF PRESENT ILLNESS: A 67-year-old, underlying history of advanced COPD, hypertension, diabetes, who presents with acute onset of shortness of breath along with a large hematoma to the left pretibial leg. Denies any cough or sputum production. No fever, chills or sweats. He is typically on 3 liters of oxygen per nasal cannula and on oral prednisone. He takes Eliquis for his atrial fibrillation. Several days ago while riding in his wheelchair, hit the left pretibial skin suffering a hematoma. No drainage. Pain is controlled. After presentation to the Emergency Room, he was taken to the intensive care unit with respiratory compromise, now on BiPAP. The patient was alert and cooperative. He complained of abdominal pain and discomfort. No report of diarrhea. No dysuria. He was previously treated for pneumonia with Augmentin. He finished his course of treatment. He was just hospitalized here the last week of April. PAST MEDICAL HISTORY: Hypertension, diabetes, COPD, steroid and oxygen dependent, depression, hyperlipidemia, atrial fibrillation, pneumonia, right hip fracture, MRSA colonization. ALLERGIES: TRAMADOL, PROPOXYPHENE, BEESTINGS, FISH-CONTAINING PRODUCTS, PEANUTS. MEDICATIONS: As noted on his MAR, currently 20 mg b.i.d. of prednisone. Other medicines as noted on his MAY. Was on Augmentin leading up to today's presentation. FAMILY HISTORY: Noncontributory. SOCIAL HISTORY: Nonsmoker, no significant alcohol intake. REVIEW OF SYSTEMS: The patient was unable to give a full detail. No reported chest pain or hemoptysis. No vomiting or diarrhea. PHYSICAL EXAMINATION: [facility] [address] [place] [address] CONSULTATION Name: CAITLYN MURRY Room #: 243-P [facility] IN M.R.#: [id number] Admission: 05/09/17 Attend Phys: Milan Terry MD Discharge: 05/09/17 Date of : 46 Report #: [id number] GENERAL: He was hypothermic. He was mottled throughout. He was on BiPAP. Had clear sputum. NECK: Supple. LUNGS: Coarse bilaterally. HEART: Regular, without appreciable murmur. ABDOMEN: Distended, tender mostly on the left side. No hepatosplenomegaly or mass appreciated. External genitalia unremarkable. RECTAL: Not performed. EXTREMITIES: Large hematoma to the left pretibial skin. He had thin skin from his chronic steroid use. LABORATORY STUDIES: Sodium 139, potassium 5.3, bicarbonate 28, creatinine 1.2. Liver function test normal. Hemoglobin 8.8, platelet count 273,000, white count 29.6, 85% segs, 2% bands, 5% metamyelocytes, 2% myelocytes. BNP 9000. Troponin 0.04. INR 1.1. Procalcitonin 0.13. Blood cultures are pending. Chest x-ray, right mid lung pulmonary infiltrate. IMPRESSION: A 67-year-old with advanced chronic obstructive pulmonary disease, recently hospitalized approximately a week ago with chronic obstructive pulmonary disease exacerbation and aspiration pneumonitis following a gastrointestinal bleed, on anticoagulation for atrial fibrillation. He has had a previous pelvic fracture. Now returns with further respiratory compromise, suspect pneumonia, healthcare associated along with a large left lower extremity soft tissue hematoma. RECOMMENDATION: The patient will require intubation and mechanical ventilation for full support. Obtain cultures of blood and sputum as well as place indwelling Montes catheter and check urinalysis and urine culture. His abdomen appears tender, question whether he has had a retroperitoneal bleed, but this would be less likely considering his hemoglobin is stable from his most recent hospital stay. We will have him embark on empiric antibiotic therapy. It is noted that his methicillin-resistant Staphylococcus aureus screen is positive. I discussed in detail with pulmonary medicine at the bedside. <ELECTRONICALLY SIGNED> By: Baron Naqvi MD 05/30/17 2156 1121 1827 Baron Naqvi MD /nt
--- NOTE | ~2017-05-09 | HC ---
[place] [address] CONSULTATION Name: CAITLYN MURRY Room #: [facility] IN M.R.#: [id number] Admission: 05/09/17 Attend Phys: Milan Terry MD Discharge: 05/09/17 Date of : 46 Report #: [id number] THIS REPORT FOR: //name// CC: FAM unknown iMlan Terry DATE OF SERVICE: 05/09/2017 CHIEF COMPLAINT: Hematoma, left lower extremity. HISTORY OF PRESENT ILLNESS: This is a 67-year-old male patient, I have been asked to see with regard to a left lower leg hematoma. He has a history of diabetes, hypertension, atrial fibrillation. He is intubated on a respirator, sedated in the Intensive Care Unit. He is not able to provide any information about himself. PAST MEDICAL HISTORY: Positive for COPD, history of GI bleeding, left lower extremity hematoma, and sepsis. MEDICATIONS: Include MiraLax, Protonix, Lopressor, Claritin, probiotic, Mucinex, glucagon, Lasix, iron, Colace, Lipitor, aspirin, Eliquis, Pacerone, Wellbutrin, Silvadene cream, oxycodone, fentanyl patch, prednisone. PAST MEDICAL HISTORY: Positive hypertension, diabetes, COPD, hyperlipidemia, respiratory failure, atrial fibrillation. FAMILY HISTORY: Noncontributory. SOCIAL HISTORY: Negative for alcohol or tobacco use per his records. REVIEW OF SYSTEMS: A 14-point review of systems is unobtainable due to the patient's level of consciousness as he is unresponsive and orally intubated. PHYSICAL EXAMINATION: VITAL SIGNS: Pulse rate 70, respiratory rate 33, blood pressure 78/51, temperature 98.2. GENERAL: This is a severely debilitated, chronically ill-appearing male patient who is unresponsive on a respirator. HEENT: Head appears normocephalic. Nose is clear. Throat shows that he is orally intubated with endotracheal tube in place. NECK: Supple. LUNGS: Diminished. HEART: Regular rhythm. ABDOMEN: Slightly distended, nontender. EXTREMITIES: Lower extremities demonstrate that the skin is cold to touch. He is a little bit dusky and mottled. He has a large hematoma to the left [address] [place] [address] CONSULTATION Name: CAITLYN MURRY Room #: [facility] IN ..#: [id number] Admission: 05/09/17 Attend Phys: Milan Terry MD Discharge: 05/09/17 Date of : 46 Report #: [id number] pretibial region. It does not appear to be infected. NEUROLOGIC: The patient is flaccid and not responsive. LABORATORY DATA: Includes sodium 139, potassium 5.3, chloride 100, CO2 of 29, BUN 46, creatinine 1.2, glucose 259, total protein 5.7, albumin 3.0. A proBNP is 9330. INR is 1.1. White blood cell count 27.1, hemoglobin 7.5, hematocrit of 23.6. CLINICAL IMPRESSION: 1. Hematoma to the left lower extremity, presumably traumatic in origin. 2. Respiratory failure and sepsis. 3. Mechanical ventilation. RECOMMENDATIONS: At this point in time, the patient is in Intensive Care Unit. He will need to be turned and repositioned as would be appropriate for his condition. We have not turned and rolled him to look at his back or buttocks due to his apparent hemodynamic instability. We will recommend leaving most of the skin open to air. This would require debridement at some point in time, but he would need to be medically much more stable before considering such. I appreciate being asked to see him in consultation. <ELECTRONICALLY SIGNED> By: Oscar Crews MD 05/10/17 0948 2109 0012 Oscar Crews MD /nt
[~2017-05-09 05:19] MED LIST: ALBUTEROL2.5 MG/31 INH; APAP650 PO; ASPIR 8181 MG PO; AUGMENTIN 875-1 EACH PO; BISACODYL SUPP10 MG RECTAL; CLARITIN10 MG PO; COLACE100 MG PO; DEXTROSE 5% IV; DEXTROSE 500.5 GM/ML IV PUSH; DUONEB 2.5-0.5 M3 ML INH; ELIQUIS5 MG PO; ENEMEEZ PLUS MIN5 ML RECTAL; GLUCAGEN1 M2 SUBQ; GLUTOSE GEL 1515 G1 PO; IRON325 PO; LASIX 20 MG TAB20 MG PO; LIPITOR10 MG PO; LOPRESSOR50 PO; MAG-AL PLUS SUS30 ML PO; MINTOX PLUS TA1 EACH PO; MIRALAX17 GM PO; MUCINEX600 MG PO; NOVOLOG100 UNIT/1 SUBQ; OXYCODONE HCL 55 MG PO; OXYCONTIN20 M1 PO; PACERONE 200 M200 M1 PO; PREDNISONE 20 M20 MG PO; PROBIOTIC1 EAC1 PO; PROTONIX40 M1 PO; SENNA8.6 MG PO; SSD CREAM 1% 5050 GM TOP; TESSALON PERLE100 MG PO; WELLBUTRIN SR100 MG PO
[2017-05-09] MEDS ORDERED: DUONEB 2.5-0.5 M3 ML INH (05:33)
[2017-05-09] MEDS ORDERED: DURAGESIC25 MCG/HR TRANSDERM (05:35)
[2017-05-09] MEDS ORDERED: PREDNISONE 10 M10 MG PO (05:36)
[2017-05-09] MEDS ORDERED: SENNA PLUS TAB1 EACH PO (05:39)
[2017-05-09] MEDS ORDERED: MILK OF MA2400 MG/10 PO (05:40)
[2017-05-09 05:43] LABS: BE(vivo) 3.2 mmol/L (-2 to +3); HCO3 28.7 mmol/L (22.0-26.0); PCO2 49.1 mmHg (35.0-45.0); PO2 198.7 mmHg (80.0-100.0); pH 7.385 (7.360-7.450); sO2 99.3 % (92.0-98.0)
[2017-05-09] MEDS ORDERED: DEXTROSE 5% (05:43)
[2017-05-09 06:00] LABS: HEMATOCRIT 27.2 % (42.0-52.0); HEMOGLOBIN 8.8 gm/dL (14.0-18.0); MCH 29.7 pg (26.0-34.0); MCHC 32.4 g/dL (28.0-37.0); MCV 91.7 fL (80.0-100.0); PLATELET COUNT 273 thou/uL (150-400); RBC 2.96 mil/uL (4.50-6.00); RDW 19.4 % (10.5-14.5); WBC 29.6 thou/uL (4.0-11.0)
[2017-05-09 06:07] LABS: APTT 20.3 Seconds (24.5-32.8); INR 1.1
[2017-05-09 06:08] LABS: CALCIUM 8.9 mg/dL (8.5-10.1); CREATININE 1.2 mg/dL (0.7-1.3); POTASSIUM 5.3 mmol/L (3.5-5.1)
[2017-05-09 06:16] LABS: TOTAL BILIRUBIN 0.6 mg/dL (<0.1-1.0); TOTAL PROTEIN 5.7 g/dL (6.4-8.2); TROPONIN-I 0.04 ng/mL (<0.06)
[2017-05-09 07:11] LABS: ABSOLUTE NEUTROPHILS 25.8 thou/uL (1.4-8.2); ANISOCYTOSIS 2+; METAMYELOCYTES 5 %; MYELOCYTES 2 %; POLYCHROMASIA OCCASIONAL
[2017-05-09 07:12] LABS: OVALOCYTES FEW
[2017-05-09 13:14] LABS: URINE BILIRUBIN NEGATIVE (Negative); URINE BLOOD NEGATIVE (Negative); URINE CLARITY CLEAR; URINE COLOR YELLOW; URINE GLUCOSE-RANDOM* NEGATIVE (Negative); URINE KETONES TRACE (Negative); URINE LEUKOCYTES-REFLEX NEGATIVE (Negative); URINE NITRITE-REFLEX NEGATIVE (Negative); URINE PROTEIN (DIPSTICK) NEGATIVE (Negative); URINE SPECIFIC GRAVITY 1.025 (1.005-1.035); URINE UROBILINOGEN 0.2 E.U./dl (0.2-1.0)
[2017-05-09 17:04] LABS: BE(vivo) -14.9 mmol/L (-2 to +3); HCO3 12.1 mmol/L (22.0-26.0); PCO2 32.6 mmHg (35.0-45.0); sO2 99.2 % (92.0-98.0)
[2017-05-09 17:05] LABS: pH 7.188 (7.360-7.450)
[2017-05-09 17:10] LABS: HEMATOCRIT 23.6 % (42.0-52.0); HEMOGLOBIN 7.5 gm/dL (14.0-18.0); MCH 29.8 pg (26.0-34.0); MCHC 31.6 g/dL (28.0-37.0); MCV 94.3 fL (80.0-100.0); RBC 2.5 mil/uL (4.50-6.00); RDW 19.4 % (10.5-14.5); WBC 27.1 thou/uL (4.0-11.0)
[2017-05-14 00:06] LABS: ADENOVIRUS Negative (Negative); INFLUENZA A Negative (Negative); INFLUENZA B Negative (Negative); METAPNEUMOVIRUS Negative (Negative); PARAINFLUENZA 1 Negative (Negative); PARAINFLUENZA 2 Negative (Negative); PARAINFLUENZA 3 Negative (Negative); RHINOVIRUS Negative (Negative); RSV A Negative (Negative); RSV B Negative (Negative)
== END 2017-05-09 19:56 | DRG 871 ==
LOC: ER 05:19 → EROBS 06:09 → 2N 06:09 → ICU 10:15
PROVIDERS: Emergency Medicine; Internal Medicine; Internal Medicine Pulmonary Disease; Specialist
PROC: 5A12012 Performance of Cardiac Output, Single, Manual (ICD-10-PCS; principal; 2017-05-09)
PROC: 0BH17EZ Insertion of Endotracheal Airway into Trachea, Via Natural or Artificial Opening (ICD-10-PCS; 2017-05-09)
PROC: 5A1935Z Respiratory Ventilation, Less than 24 Consecutive Hours (ICD-10-PCS; 2017-05-09)
PROC: 02HV33Z Insertion of Infusion Device into Superior Vena Cava, Percutaneous Approach (ICD-10-PCS; 2017-05-09)
DX: A41.9 Sepsis, unspecified organism (principal); J18.9 Pneumonia, unspecified organism; J96.01 Acute respiratory failure with hypoxia; J96.02 Acute respiratory failure with hypercapnia; R65.21 Severe sepsis with septic shock; I13.0 Hypertensive heart and chronic kidney disease with heart failure and stage 1 through stage 4 chronic kidney disease, or unspecified chronic kidney disease; J44.0 Chronic obstructive pulmonary disease with (acute) lower respiratory infection; F32.9 Major depressive disorder, single episode, unspecified; E78.5 Hyperlipidemia, unspecified; I48.91 Unspecified atrial fibrillation; K21.9 Gastro-esophageal reflux disease without esophagitis; I50.9 Heart failure, unspecified; N18.9 Chronic kidney disease, unspecified; Z66 Do not resuscitate; E11.22 Type 2 diabetes mellitus with diabetic chronic kidney disease; M19.90 Unspecified osteoarthritis, unspecified site; I25.10 Atherosclerotic heart disease of native coronary artery without angina pectoris; D64.9 Anemia, unspecified; S80.12XA Contusion of left lower leg, initial encounter; X58.XXXA Exposure to other specified factors, initial encounter; E87.5 Hyperkalemia; Z95.1 Presence of aortocoronary bypass graft; Z87.81 Personal history of (healed) traumatic fracture; Z88.8 Allergy status to other drugs, medicaments and biological substances; Z91.030 Bee allergy status; Z91.010 Allergy to peanuts; Z91.013 Allergy to seafood; Z87.11 Personal history of peptic ulcer disease; Y93.89 Activity, other specified; Y92.89 Other specified places as the place of occurrence of the external cause; Y99.8 Other external cause status
CPT/HCPCS: 10078; 27000; 85026